=== PATIENT | female | born 1985 | race Caucasian/White ===

== ENCOUNTER → 2021-06-08 | Outpatient (CLI) | payer OTHER ==
[~2021-06-08] MED LIST: FOLIC ACID0.4 MG PO; IRON236 MG PO
== END | disposition home or self-care (01) ==
LOC: SONOGRAMA 13:39
PROVIDERS: ATTEND Obstetrics & Gynecology
DX: R10.2 Pelvic and perineal pain (principal)

== ENCOUNTER 2021-06-30 17:17 | Inpatient (IN) | payer OTHER ==
[~2021-06-30] VITALS: Ht 149.9 cm; Wt 134.7 kg
[2021-06-30] MEDS ORDERED: IRON236 MG PO (17:28)
[2021-06-30] MEDS ORDERED: FOLIC ACID0.4 MG PO (17:28)
== END 2021-07-03 13:37 | disposition home or self-care (01) | DRG 812 ==
LOC: ER 17:17 → MEDI 23:01
PROVIDERS: ADMIT Internal Medicine; ATTEND Internal Medicine
PROC: 30233N1 Transfusion of Nonautologous Red Blood Cells into Peripheral Vein, Percutaneous Approach (ICD-10-PCS; 2021-06-30)
PROC: BW21YZZ Computerized Tomography (CT Scan) of Abdomen and Pelvis using Other Contrast (ICD-10-PCS; principal; 2021-07-01)
PROC: BW24YZZ Computerized Tomography (CT Scan) of Chest and Abdomen using Other Contrast (ICD-10-PCS; 2021-07-01)
PROC: 3E0F7SF Introduction of Other Gas into Respiratory Tract, Via Natural or Artificial Opening (ICD-10-PCS; 2021-07-01)
DX: D64.9 Anemia, unspecified (principal); D51.8 Other vitamin B12 deficiency anemias; D50.0 Iron deficiency anemia secondary to blood loss (chronic); E66.01 Morbid (severe) obesity due to excess calories; Z20.822 Contact with and (suspected) exposure to COVID-19